=== PATIENT | female | born 1980 | race Caucasian/White ===

== ENCOUNTER 2019-02-05 15:06 | Emergency (ER) | payer OTHER ==
[2019-02-05 15:18] VITALS: BP 117/86; PULSE 65; O2SAT 99
[2019-02-05] MEDS ORDERED: solu-CORTEF 250MG IM STA (15:19)
--- NOTE | 2019-02-05 15:23 | ERPHSYRPT ---
- History of Present Illness Time Seen by Provider: 02/05/19 15:19 Source: patient Exam Limitations: no limitations Patient Subjective Stated Complaint: was stung by a bee by the right eye and 2 days later the left eye was swollen, went to [facility] on Thursday and was given eye drops, pain and swelling has gotten worse, light sensitive Triage Nursing Assessment: vitals wnl, pulses normal, left eye swollen, rates pain 6/10 Physician History: was stung by a bee by the right eye and 2 days later the left eye was swollen, went to [facility] on Thursday and was given eye drops, pain and swelling has gotten worse, light sensitive Timing/Duration: day(s) (5 days ago) Location: left eye Severity: moderate Apparent Injury: no Associated Symptoms: pain, burning, itching, sensitivity to light, redness, matting, eyelid swelling, foreign body sensation, No decreased vision, No blurred vision, No double vision Visual Assistive Devices: None Allergies/Adverse Reactions: No Known Drug Allergies Allergy (Verified 02/05/19 15:18) Home Medications: Ropinirole 2Mg [Requip 2Mg Tab] 2 mg PO BID 10/29/14 [History] Hx Tetanus, Diphtheria Vaccination/Date Given: Yes (2009) Hx Influenza Vaccination/Date Given: No Hx Pneumococcal Vaccination/Date Given: No - Review of Systems Constitutional: No Symptoms Eyes: Eye Pain, Eye Redness, Itchy, Tearing, Foreign Body Sensation, No Photophobia, No Vision Changes, No Double Vision Ears, Nose, & Throat: No Symptoms Respiratory: No Symptoms Cardiac: No Symptoms Abdominal/Gastrointestinal: No Symptoms Genitourinary Symptoms: No Symptoms Musculoskeletal: No Symptoms - Past Medical History Pertinent Past Medical History: Yes Neurological History: No Pertinent History ENT History: No Pertinent History Cardiac History: No Pertinent History Respiratory History: No Pertinent History Endocrine Medical History: No Pertinent History Musculoskeletal History: Osteoarthritis GI Medical History: No Pertinent History History: No Pertinent History Psycho-Social History: No Pertinent History Female Reproductive Disorders: No Pertinent History Other Medical History: BACK PAIN - Past Surgical History Past Surgical History: No - Social History Smoking Status: Current every day smoker How long have you smoked: 10 Exposure to second hand smoke: Yes Drug Use: none Patient Lives Alone: No - Female History Hx Now: No (unsure) - Nursing Vital Signs Nursing Vital Signs: Initial Vital Signs Temperature 97.3 F 02/05/19 15:10 Pulse Rate 65 02/05/19 15:10 Blood Pressure 117/86 02/05/19 15:10 O2 Sat by Pulse Oximetry 99 02/05/19 15:10 Pain Scale Pain Intensity 6 - Physical Exam General Appearance: no apparent distress Vision Acuity Right Eye: 20/20 Vision Acuity Left Eye: 20/20 Eye Exam: left eye: eyelid inflammation, bilateral eye: conjunctival inflammation, erythema Ears, Nose, Throat Exam: normal ENT inspection Neck Exam: normal inspection Respiratory Exam: normal breath sounds Cardiovascular Exam: regular rate/rhythm SpO2: 99 - Course Nursing assessment & vital signs reviewed: Yes Ordered Tests: Medication Summary Discontinued Medications Generic Name Dose Route Start Last Admin Trade Name Freq PRN Reason Stop Dose Admin Hydrocortisone Sodium Succinate 250 mg 02/05/19 15:19 02/05/19 15:37 Solu-Cortef 250mg IM 02/05/19 15:20 250 mg Q6H STA Administration Hydrocortisone Sodium Succinate Confirm 02/05/19 15:32 Solu-Cortef 250mg Administered 02/05/19 15:33 Dose 250 mg .ROUTE .STK-MED ONE - Progress Progress: unchanged, pain not gone completely Counseled pt/family regarding: diagnosis, need for follow-up - Departure Departure Disposition: Home Clinical Impression: Allergic reaction to bee sting, Angular blepharitis of left eye Condition: Stable Critical Care Time: No Referrals: KENDRA GODINEZ [Primary Care Provider] - Instructions: Blepharitis, Insect Bites and Stings (DC) Additional Instructions: Discharge/Care Plan MARILIA KAN was seen on 02/05/19 in the Emergency Room. The patient was counseled regarding Diagnosis,Lab results, Imaging studies, need for follow up and when to return to the Emergency Room. Prescriptions given: Discharge Note I have spoken with the patient and/or caregivers. I have explained the patient' s condition, diagnosis and treatment plan based on the information available to me at this time. I have answered the patient's and/or caregiver's questions and addressed any concerns. The patient and/or caregivers have as good understanding of the patient's diagnosis, condition and treatment plan as can be expected at this point. The vital signs have been stable. The patient's condition is stable and appropriate for discharge from the emergency department. The patient will pursue further outpatient evaluation with the primary care physician or other designated or consulting physician as outlined in the discharge instructions. The patient and/or caregivers are agreeable to this plan of care and follow-up instructions have been explained in detail. The patient and/or caregivers have received these instruction. The patient/and or caregivers are aware that any significant change in condition or worsening of symptoms should prompt an immediate return to this or the closest emergency department or call 911. Prescriptions: Silvano/Polymyx B Sulf/Dexameth [Maxitrol 5 ml Ophth Susp] 2 drops OP QID #5 bottle Methylprednisolone Packet [Medrol Dosepack] 4 mg PO UD #30 packet
[2019-02-05] MEDS ORDERED: solu-CORTEF 250MG ONE (15:32)
== END 2019-02-05 15:44 | disposition home or self-care (01) ==
LOC: ED 15:06
DX: H01.006 Unspecified blepharitis left eye, unspecified eyelid (principal); T63.441A Toxic effect of venom of bees, accidental (unintentional), initial encounter
CPT/HCPCS: 96372; 99283; J1720

== ENCOUNTER 2021-01-07 08:45 | Emergency (ER) | payer OTHER ==
--- NOTE | 2021-01-07 08:49 | ERPHSYRPT ---
- History of Present Illness Time Seen by Provider: 01/07/21 08:49 Source: patient Exam Limitations: no limitations Physician History: This is a 40-year-old white female who presents with approximately 2-day history of left neck pain in the posterior lateral region. Patient did not suffer any trauma or injury. She woke up a couple days ago and now she cannot get comfortable. Is difficult for her to move her neck because of the pain in this area. The patient states she is never had a thing like this before. She has no chest pain. She has no shortness of breath. She has no abdominal pain. She has no nausea vomiting or diarrhea. Patient has no known drug allergies per her report. Patient has no numbness or paresthesias present. 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 Timing/Duration: day(s) (2) Method of Injury: other (No injury) Quality: sharp, aching Back Pain Location: paraspinous muscles (Cervical region on the left side) Severity of Pain-Max: moderate Severity of Pain-Current: moderate Associated Symptoms: denies symptoms Previous symptoms: no prior history Allergies/Adverse Reactions: No Known Drug Allergies Allergy (Verified 02/05/19 15:18) Home Medications: Ropinirole 2Mg [Requip 2Mg Tab] 2 mg PO BID 10/29/14 [History] Hx Tetanus, Diphtheria Vaccination/Date Given: Yes (2009) Hx Influenza Vaccination/Date Given: No Hx Pneumococcal Vaccination/Date Given: No Travel Risk - International Travel Have you traveled outside of the country in past 3 weeks: No - Coronavirus Screening Are you exhibiting any of the following symptoms?: No Close contact with a COVID-19 positive Pt in past 14-21 Days: No - Review of Systems Constitutional: No Symptoms Eyes: No Symptoms Ears, Nose, & Throat: No Symptoms Respiratory: No Symptoms Cardiac: No Symptoms Abdominal/Gastrointestinal: No Symptoms Genitourinary Symptoms: No Symptoms Musculoskeletal: Other (Left paraspinous muscle and trapezius muscle on the left side pain. Worse with movement) Skin: No Symptoms Neurological: No Symptoms Psychological: No Symptoms Endocrine: No Symptoms Hematologic/Lymphatic: No Symptoms Immunological/Allergic: No Symptoms All Other Systems: Reviewed and Negative - Past Medical History Pertinent Past Medical History: Yes Neurological History: No Pertinent History ENT History: No Pertinent History Cardiac History: No Pertinent History Respiratory History: No Pertinent History Endocrine Medical History: No Pertinent History Musculoskeletal History: Osteoarthritis GI Medical History: No Pertinent History History: No Pertinent History Psycho-Social History: No Pertinent History Female Reproductive Disorders: No Pertinent History Other Medical History: BACK PAIN - Past Surgical History Past Surgical History: No - Social History Smoking Status: Current every day smoker How long have you smoked: 10 Exposure to second hand smoke: Yes Drug Use: none Patient Lives Alone: No - Nursing Vital Signs Nursing Vital Signs: Initial Vital Signs Temperature 97.6 F 01/07/21 08:51 Pulse Rate 82 01/07/21 08:51 Respiratory Rate 22 01/07/21 08:51 Blood Pressure 123/66 01/07/21 08:51 O2 Sat by Pulse Oximetry 98 01/07/21 08:51 Pain Scale Pain Intensity 5 - Physical Exam General Appearance: no apparent distress, alert, anxiety Eye Exam: PERRL/EOMI, eyes nml inspection Ears, Nose, Throat Exam: normal ENT inspection, TMs normal, pharynx normal Neck Exam: limited range of motion (Secondary to tenderness in the left paraspinous muscle region as well as tenderness to palpation to the left trapezius muscle.), No midline tenderness Cardiovascular Exam: regular rate/rhythm, normal heart sounds, normal peripheral pulses Gastrointestinal Exam: No tenderness Pelvic Exam: not done Rectal Exam: not done Back Exam: normal inspection, normal range of motion, muscle spasm (Left cervical level paraspinous muscles), No CVA tenderness, No vertebral tenderness Extremity Exam: normal inspection, normal range of motion, pelvis stable Neurologic Exam: alert, oriented x 3, cooperative, 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, normal mood/affect, nml station & gait Skin Exam: normal color Lymphatic Exam: No adenopathy SpO2 Interpretation: normal O2 Delivery: Room Air - Course Nursing assessment & vital signs reviewed: Yes Ordered Tests: Medication Summary Discontinued Medications Generic Name Dose Route Start Last Admin Trade Name Freq PRN Reason Stop Dose Admin Methylprednisolone Sodium Succinate 125 mg 01/07/21 09:05 Solu-Medrol 125 Mg IM 01/07/21 09:06 STAT ONE Orphenadrine Citrate 60 mg 01/07/21 09:05 Norflex 60 Mg/2 Ml IM 01/07/21 09:06 STAT ONE Oxycodone/Acetaminophen 1 tab 01/07/21 09:04 Percocet Tablet 5/325mg PO 01/07/21 09:05 STAT STA - Progress Progress: improved, pain not gone completely Counseled pt/family regarding: diagnosis, need for follow-up - Departure Departure Disposition: Home Clinical Impression: Cervical muscle strain, Muscle spasms of neck Condition: Stable Critical Care Time: No Referrals: KENDRA GODINEZ [Primary Care Provider] - Additional Instructions: Take your medication as prescribed. Follow-up with your primary care physician for further management. Prescriptions: Cyclobenzaprine HCl 10 mg [Cyclobenzaprine 10 MG] 10 mg PO TID #10 tablet Prednisone 10 mg [Deltasone 10 mg] 10 mg PO TID #12 tablet
[2021-01-07 08:57] VITALS: O2SAT 98
[2021-01-07] MEDS ORDERED: PERCOCET TABLET 5/325MG PO STA (09:04)
[2021-01-07] MEDS ORDERED: solu-MEDROL 125 MG IM ONE (09:05)
[2021-01-07] MEDS ORDERED: Norflex 60 MG/2 ML IM ONE (09:05)
[2021-01-07] MEDS ORDERED: Norflex 60 MG/2 ML ONE (09:07)
[2021-01-07] MEDS ORDERED: solu-MEDROL 125 MG ONE (09:07)
[2021-01-07] MEDS ORDERED: PERCOCET TABLET 5/325MG ONE (09:07)
[2021-01-07 09:44] VITALS: BP 118/20; PULSE 68
== END 2021-01-07 09:43 | disposition home or self-care (01) ==
LOC: ED 08:45
DX: S16.1XXA Strain of muscle, fascia and tendon at neck level, initial encounter (principal); X58.XXXA Exposure to other specified factors, initial encounter; Y93.9 Activity, unspecified; Y92.9 Unspecified place or not applicable; M54.2 Cervicalgia
CPT/HCPCS: 96372; 99284; J2360; J2930; A9270-GY

== ENCOUNTER 2021-10-16 09:55 | Observation (INO) | payer OTHER ==
[2021-10-16 10:52] VITALS: BP 119/57; PULSE 79; O2SAT 98
[2021-10-16 10:57] LABS: Amphetamine,Urine NEGATIVE (NEGATIVE); Barbiturate,Urine NEGATIVE (NEGATIVE); Benzodiazepine,Urine NEGATIVE (NEGATIVE); Cocaine,Urine NEGATIVE (NEGATIVE); Methadone,Urine NEGATIVE (NEGATIVE); Opiate,Urine NEGATIVE (NEGATIVE); PCP,Urine NEGATIVE (NEGATIVE); THC,Urine NEGATIVE (NEGATIVE)
[2021-10-16 11:16] LABS: Epithelial Cells MODERATE /HPF (FEW); Mucus SLIGHT /HPF (NEGATIVE); RBC 0-2 /HPF (0-2)
[2021-10-16 11:17] LABS: Appearance SLIGHTLY HAZY (CLEAR); Bilirubin NEGATIVE (NEGATIVE); Glucose 250 mg/dL (NEGATIVE); Ketones NEGATIVE (NEGATIVE); Nitrite NEGATIVE (NEGATIVE); Ph 5.5 (5-6); Protein,Urine Dip NEGATIVE (Negative); RBC NEGATIVE Ery/ul (0-5); Specific Gravity >=1.030 (1.005-1.025); Urine Cultured Indicated? NO; Urobilinogen 4 mg/dL (0-1)
[2021-10-16 11:45] LABS: Dipstick done @ ? MAIN LAB
== END 2021-10-16 11:55 | disposition home or self-care (01) ==
LOC: OB 09:55
PROVIDERS: ADMIT Obstetrics & Gynecology; ATTEND Obstetrics & Gynecology
DX: Z34.83 Encounter for supervision of other normal pregnancy, third trimester (principal); Z3A.29 29 weeks gestation of pregnancy
CPT/HCPCS: 80307; 81015; G0378

== ENCOUNTER 2021-11-25 17:29 | Observation (INO) | payer OTHER ==
[2021-11-25 18:11] LABS: Appearance SLIGHTLY CLOUDY (CLEAR); Bilirubin NEGATIVE (NEGATIVE); Dipstick done @ ? MAIN LAB; Glucose 100 mg/dL (NEGATIVE); Ketones NEGATIVE (NEGATIVE); Nitrite NEGATIVE (NEGATIVE); Protein,Urine Dip 30 (Negative); RBC NEGATIVE Ery/ul (0-5); Specific Gravity >=1.030 (1.005-1.025); Urobilinogen 4 mg/dL (0-1)
[2021-11-25 18:16] LABS: Epithelial Cells MANY /HPF (FEW); Mucus SLIGHT /HPF (NEGATIVE)
[2021-11-25 18:17] LABS: Urine Cultured Indicated? NO
[2021-11-25 18:28] LABS: Amphetamine,Urine NEGATIVE (NEGATIVE); Barbiturate,Urine NEGATIVE (NEGATIVE); Benzodiazepine,Urine NEGATIVE (NEGATIVE); Cocaine,Urine NEGATIVE (NEGATIVE); Methadone,Urine NEGATIVE (NEGATIVE); Opiate,Urine NEGATIVE (NEGATIVE); PCP,Urine NEGATIVE (NEGATIVE); THC,Urine NEGATIVE (NEGATIVE)
[2021-11-25 18:53] LABS: Absolute Neutrophil Ct (ANC) 8.59 (1.4-6.9); Basophil (Absolute #) 0.02 (0-0.4); Eosinophil % 0.8 % (0.00-5.0); Hematocrit 36.5 % (35-47); Hemoglobin 12.4 gm/dl (12.0-16.0); Lymphocyte (Absolute #) 2.85 (1.0-4.6); Lymphocytes % 23.2 % (24.0-44.0); Mean Cell Volume 94.6 fl (78-100); Mean Corpuscular Hemoglobin 32.1 pg (26-32); Mean Platelet Volume 9.8 fl (7.5-11.0); Monocyte (Absolute #) 0.74 (0.0-1.3); Neutrophil % 69.8 % (36.0-66.0); Platelet Count 279 K/mm3 (150-450); Red Blood Count 3.86 M/mm3 (4.1-5.4); White Blood Count 12.3 K/mm3 (4.0-10.5)
[2021-11-25 19:10] LABS: ALBUMIN 3.2 g/dL (3.5-5.0); ALKALINE PHOSPHATASE 112 U/L (38-126); ANION GAP 9.4 MEQ/L (5-15); BLOOD UREA NITROGEN 10 mg/dL (7-17); CHLORIDE 108 mmol/L (98-107); Carbon Dioxide 21 mmol/L (22-30); EST GLOMERULAR FILTRATION RATE > 60.0 ML/MIN; Glucose 114 mg/dL (74-106); Potassium 3.6 mmol/L (3.5-5.1); SGOT/AST 20 U/L (14-36); SGPT/ALT 16 U/L (0-35); SODIUM 135 mmol/L (137-145); Total Protein 6.4 g/dL (6.3-8.2)
[2021-11-25 19:44] VITALS: BP 130/79; PULSE 74
[2021-11-25 19:59] LABS: Creatinine, Urine Random 131.5 mg/dl; Protein Creatinine Ratio, Ran. 0.32 mg/mg (0.0-0.15)
== END 2021-11-25 20:20 | disposition home or self-care (01) ==
LOC: OB 17:29
PROVIDERS: ADMIT Obstetrics & Gynecology; ATTEND Obstetrics & Gynecology
DX: Z34.83 Encounter for supervision of other normal pregnancy, third trimester (principal); Z3A.35 35 weeks gestation of pregnancy
CPT/HCPCS: 36415; 80053; 80307; 81015; 82570; 84156; 84550; 85025; G0378

== ENCOUNTER 2021-12-13 08:53 | Inpatient (IN) | payer OTHER ==
[2021-12-13] MEDS ORDERED: CYTOTEC PO ONE (10:52)
[2021-12-13 11:27] LABS: Hematocrit 38.6 % (35-47); Hemoglobin 13.2 g/dL (12.0-16.0); Mean Corpuscular Hemoglobin 31.8 pg (26-32); Mean Corpuscular Hgb Concent. 34.2 g/dL (32-36); Mean Platelet Volume 9.5 fL (7.5-11.0); Platelet Count 273 x10^3/uL (150-450); Red Blood Count 4.15 x10^6/uL (4.1-5.4)
[2021-12-13 11:40] LABS: ALBUMIN 3.3 g/dL (3.5-5.0); ALKALINE PHOSPHATASE 145 U/L (38-126); ANION GAP 9.4 MEQ/L (5-15); BLOOD UREA NITROGEN 10 mg/dL (7-17); CHLORIDE 108 mmol/L (98-107); Calcium 8.9 mg/dL (8.4-10.2); Carbon Dioxide 20 mmol/L (22-30); Creatinine 1 0.65 mg/dL (0.52-1.04); EST GLOMERULAR FILTRATION RATE > 60.0 ML/MIN; Glucose 95 mg/dL (74-106); Potassium 3.8 mmol/L (3.5-5.1); SGOT/AST 25 U/L (14-36); SGPT/ALT 18 U/L (0-35); SODIUM 133 mmol/L (137-145); Total Protein 6.6 g/dL (6.3-8.2)
[2021-12-13] MEDS ORDERED: Zofran 4 MG/2 ML VIAL IV PRN (12:57)
[2021-12-13] MEDS ORDERED: XYLOCAINE 1% HCL 20 ML MDV IJ PRN (12:57)
[2021-12-13 14:19] LABS: ABO TYPING AB; Antibody Screen NEGATIVE (NEGATIVE); RH TYPING POSITIVE
[2021-12-13] MEDS: REQUIP 2MG TAB PO SCH ×2 (16:04→22:54)
[2021-12-13 16:23] LABS: Amphetamine,Urine NEGATIVE (NEGATIVE); Barbiturate,Urine NEGATIVE (NEGATIVE); Benzodiazepine,Urine NEGATIVE (NEGATIVE); Cocaine,Urine NEGATIVE (NEGATIVE); Methadone,Urine NEGATIVE (NEGATIVE); Opiate,Urine NEGATIVE (NEGATIVE); PCP,Urine NEGATIVE (NEGATIVE); THC,Urine NEGATIVE (NEGATIVE)
[2021-12-13] MEDS ORDERED: Lactated Ringers 1,000 ML IV ONE (18:21)
[2021-12-13] MEDS ORDERED: Ephedrine Sulfate 50 MG/ML IV PRN (18:21)
[2021-12-13] MEDS ORDERED: FENTANYL 2 MCG-BUPIV 0.125%-NS 250 ML Epidur 250 ML EPIDURAL SCH (18:30)
[2021-12-13] MEDS ORDERED: STADOL 2 MG IV PRN (22:21)
[2021-12-14] MEDS: TYLENOL EXTRA STRENGTH 500 MG PO PRN ×2 (03:56→11:06)
[2021-12-14] MEDS: STADOL 2 MG IV PRN ×2 (05:29→22:03)
[2021-12-14 10:24] LABS: HBsAg Screen Negative (Negative)
[2021-12-14] MEDS: REQUIP 2MG TAB PO SCH ×3 (10:30→22:07)
[2021-12-14] MEDS: CYTOTEC PO SCH ×5 (15:36→23:30)
[2021-12-14] MEDS: Lactated Ringers 1,000 ML IV SCH ×3 (22:09→22:11)
[2021-12-14] MEDS: PITOCIN 30 UNITS/ LR 500 ML 30 UNITS/500 ML PLAST..BAG IV SCH (22:11)
[2021-12-15] MEDS: CYTOTEC PO SCH ×3 (01:35→06:56)
[2021-12-15] MEDS: Lactated Ringers 1,000 ML IV SCH ×2 (05:02→23:13)
[2021-12-15] MEDS ORDERED: PITOCIN 30 UNITS/ LR 500 ML 30 UNITS/500 ML PLAST..BAG IV SCH (06:30)
[2021-12-15] MEDS ORDERED: Pepcid 20 MG VIAL IV ONE (08:58)
[2021-12-15] MEDS ORDERED: SUBLIMAZE 100 MCG/2 ML ONE (08:58)
[2021-12-15] MEDS ORDERED: XYLOCAINE 2%/Epi 1:200000 20ML VIAL MPF ONE (08:58)
[2021-12-15] MEDS ORDERED: Zofran 4 MG/2 ML VIAL IV ONE (08:58)
[2021-12-15] MEDS ORDERED: KEFZOL 1 GM ONE (09:08)
[2021-12-15] MEDS ORDERED: Pitocin 10 UNITS/ML ONE (09:19)
[2021-12-15] MEDS ORDERED: Ephedrine Sulfate 50 MG/ML ONE (09:21)
[2021-12-15] MEDS ORDERED: Astramorph-Pf 5 MG/10 ML ONE (09:26)
[2021-12-15] MEDS ORDERED: Decadron 4 MG INJ ONE (09:32)
[2021-12-15] MEDS ORDERED: Marcaine 0.5%/Epinephrine 10 ML ONE (09:32)
[2021-12-15] MEDS ORDERED: DEXMEDETOMIDINE 80 MCG/20ML-NS IV ONE (09:36)
[2021-12-15] MEDS ORDERED: Lactated Ringers 1,000 ML IV ONE (10:36)
[2021-12-15] MEDS ORDERED: Nubain 10 MG/ML IV PRN (12:30)
[2021-12-15] MEDS ORDERED: Narcan 0.4 MG/ML IV PRN (12:30)
[2021-12-15] MEDS ORDERED: BENADRYL 50 MG/ML IV PRN (12:30)
[2021-12-15] MEDS ORDERED: HOLD NARCOTIC ANALGESICS AND SEDATIVES X24 HR MC PRN (12:30)
[2021-12-15] MEDS ORDERED: DEMEROL 50 MG IV PRN (12:30)
[2021-12-15] MEDS ORDERED: CLARITIN 10 MG PO PRN (12:30)
[2021-12-15] MEDS ORDERED: MORPHINE SULFATE 2 MG INJ IV PRN (12:30)
[2021-12-15] MEDS ORDERED: PERCOCET TABLET 5/325MG PO PRN (12:30)
[2021-12-15 12:35] LABS: Epithelial Cells RARE /HPF (FEW); Mucus SLIGHT /HPF (NEGATIVE); RBC 26-50 /HPF (0-2)
[2021-12-15 12:37] LABS: Appearance CLEAR (CLEAR); Bilirubin NEGATIVE (NEGATIVE); Glucose NEGATIVE (NEGATIVE); Ketones NEGATIVE (NEGATIVE)
[2021-12-15 12:38] LABS: Nitrite NEGATIVE (NEGATIVE); Ph 5.5 (5-6); Protein,Urine Dip 100 (Negative); RBC MODERATE Ery/ul (0-5); Urobilinogen 1 mg/dL (0-1)
[2021-12-15 12:59] LABS: Dipstick done @ ? MAIN LAB
[2021-12-15] MEDS: Dextrose 5%-Lr IV Solution 1000 ML 1,000 ML IV SCH ×3 (15:01→23:43)
[2021-12-15] MEDS: CEFAZOLIN 2 GM-D5W BAG** 2 GM/50 ML ML IV SCH ×2 (15:41→21:52)
[2021-12-15] MEDS: REQUIP 2MG TAB PO SCH ×2 (16:27→21:55)
[2021-12-15] MEDS: TORAdol 30 mg Injection IV PRN ×2 (17:58→23:44)
--- NOTE | 2021-12-15 19:50 | XRAY ---
Indication: Post . Foreign body Comparison: None KUB light in technique without radiopaque foreign body or focal bowel dilatation/obstruction. Enlarged uterus consistent with recent . Osseous structures intact. Comment: Preliminary interpretation made by [facility]. No critical discrepancy.
[2021-12-15] MEDS: PITOCIN 30 UNITS/ LR 500 ML 30 UNITS/500 ML PLAST..BAG IV SCH (23:12)
[2021-12-16 05:07] LABS: Absolute Neutrophil Ct (ANC) 12.82 x10^3/uL (1.4-6.9); Basophil (Absolute #) 0.02 x10^3/uL (0-0.4); Eosinophil (Absolute #) 0 x10^3/uL (0-0.5); Hematocrit 34.7 % (35-47); Hemoglobin 11.6 g/dL (12.0-16.0); Lymphocyte (Absolute #) 2.74 x10^3/uL (1.0-4.6); Lymphocytes % 16.5 % (24.0-44.0); Mean Cell Volume 95.1 fL (78-100); Mean Corpuscular Hemoglobin 31.8 pg (26-32); Mean Corpuscular Hgb Concent. 33.4 g/dL (32-36); Mean Platelet Volume 9.7 fL (7.5-11.0); Monocyte (Absolute #) 0.89 x10^3/uL (0.0-1.3); Monocytes % 5.4 % (0.0-12.0); Neutrophil % 77.4 % (36.0-66.0); Platelet Count 283 x10^3/uL (150-450); Red Blood Count 3.65 x10^6/uL (4.1-5.4); Red Cell Distribution Width 12.2 % (11.5-14.0); White Blood Count 16.6 x10^3/uL (4.0-10.5)
[2021-12-16] MEDS: TORAdol 30 mg Injection IV PRN (05:43)
[2021-12-16 08:27] VITALS: O2SAT 97
--- NOTE | 2021-12-16 09:16 | PCM.NOTE ---
Date and Time: 12/16/21911 Subjective Assessment: pod 1 sp csection pt resting in bed and doing well able to ambulate and tolerate diet vss afebrile abd; soft incision with dressing intact with no soilage uterus; firm lochia; mild a/p sp csection pod 1 will anticipate discharge tomorrow cpm OBJECTIVE DATA Vital Signs: Vital Signs - 24 hr Temp Pulse Resp BP Pulse Ox 12/16/21 08:30 98.5 F 74 18 144/61 12/16/21 08:00 97 12/16/21 07:00 99 12/16/21 06:00 96 12/16/21 05:00 98.7 F 72 20 125/60 96 12/16/21 04:00 95 12/16/21 03:00 95 12/16/21 02:00 95 12/16/21 01:00 69 20 99 12/16/21 00:00 98.2 F 78 20 125/96 97 12/15/21 23:00 96 12/15/21 22:00 96 12/15/21 20:00 98.8 F 78 20 142/65 98 12/15/21 19:00 100 12/15/21 18:00 100 12/15/21 17:00 100 12/15/21 14:30 98.5 F 75 18 127/61 96 12/15/21 14:00 98.5 F 77 18 111/58 97 12/15/21 13:30 98.5 F 77 18 111/58 97 12/15/21 13:00 98.1 F 75 16 102/54 96 12/15/21 12:30 98.1 F 72 16 97/50 93 L 12/15/21 12:15 98.1 F 69 16 91/55 96 12/15/21 12:00 98.1 F 73 16 95/51 96 12/15/21 11:45 98.1 F 74 16 105/53 95 Pain Assessment - Last Documented Pain Intensity [Anterior] 5 Pain Intensity 0 Pain Scale Used 0-10 Pain Scale Intake and Output: Intake & Output 12/13/21 12/14/21 12/15/21 12/16/21 11:59 11:59 11:59 11:59 Intake Total 200 7270 120 4304 Output Total 600 1150 Balance -400 5181 841 7622 Weight 250 kg 113.398 kg Lab Results: Lab Results-Last 24 Hours 12/13/21 12/15/21 12/16/21 Range/Units 11:24 10:07 04:55 WBC 16.6 H (4.0-10.5) x10^3/uL RBC 3.65 L (4.1-5.4) x10^6/uL Hgb 11.6 L (12.0-16.0) g/dL Hct 34.7 L (35-47) % MCV 95.1 (78-100) fL MCH 31.8 (26-32) pg MCHC 33.4 (32-36) g/dL RDW 12.2 (11.5-14.0) % Plt Count 283 (150-450) x10^3/uL MPV 9.7 (7.5-11.0) fL Gran % 77.4 H (36.0-66.0) % Immature Gran % (Auto) 0.6 H (0.00-0.4) % Nucleat RBC Rel Count 0.0 (0.00-0.1) % Eos # (Auto) 0 (0-0.5) x10^3/uL Immature Gran # (Auto) 0.10 H (0.00-0.03) x10^3u/L Absolute Lymphs (auto) 2.74 (1.0-4.6) x10^3/uL Absolute Monos (auto) 0.89 (0.0-1.3) x10^3/uL Absolute Nucleated RBC 0.00 (0.00-0.01) x10^3u/L Lymphocytes % 16.5 L (24.0-44.0) % Monocytes % 5.4 (0.0-12.0) % Eosinophils % 0.0 (0.00-5.0) % Basophils % 0.1 (0.0-0.4) % Absolute Granulocytes 12.82 H (1.4-6.9) x10^3/uL Basophils # 0.02 (0-0.4) x10^3/uL Bile Acids 4.0 (0.0-10.0) umol/L Urinalys Dipstick Clnc MAIN LAB Urine Color YELLOW (YELLOW) Urine Appearance CLEAR (CLEAR) Urine pH 5.5 (5-6) Ur Specific [place] 1.020 (1.005-1.025) POC Urine Protein Conf 100 (Negative) Urine Ketones NEGATIVE (NEGATIVE) Urine Nitrite NEGATIVE (NEGATIVE) Urine Bilirubin NEGATIVE (NEGATIVE) Urine Urobilinogen 1 (0-1) mg/dL Urine Leukocytes NEGATIVE (NEGATIVE) Urine WBC (Auto) 3-5 (0-5) /HPF Urine RBC (Auto) 26-50 (0-2) /HPF U Epithel Cells (Auto) RARE (FEW) /HPF Urine Bacteria (Auto) NONE (NEGATIVE) /HPF Urine RBC MODERATE (0-5) Cristiano/ul Other Casts (Auto) NEGATIVE (NEGATIVE) /LPF Urine Mucus (Auto) SLIGHT (NEGATIVE) /HPF Urine Glucose NEGATIVE (NEGATIVE) mg/dL Radiology Exams: Radiology Procedures Category Date Time Status KUB Routine Exams 12/15/21 11:19 Completed Multi-Disciplinary Progress Notes: Multi-Disciplinary Progress Notes 12/15/21 15:59 Respiratory Note by Khushbu Kingsley FOR EMERGENT DUE TO DECELLS. 0924 BABY TO WARMER CRYING, COLOR CYNOTIC DR GONZALEZ PRESENT. SX FOR SCANT WHITE.COLOR CONTINUES TO BE CYNOTIC BABY GIVEN PPV FOR APPROX 3 MIN . COLOR IMPROVED, WITH NASAL FLARING AND GRUNTING CPAP AND PPV APPLIED VIA LUCIAN-T, ALL O2 IS 100%.BABY TAKEN BACK TO NURSERY NASAL FLARING AND GRUNTING CONTINUE. PLACED ON HHHF . 1000- 3.5L- 25% -SP02 83-88%. 1030- 7L -28%- SPO2 78-82%. 1045- 6L 25% SPO2 88-92%. 1200- 4.5L 21% 98%. 1230- 4.5L 28% SPO2 80'S. 1300- 4.5L 21% SPO2- 90'S. 1400L- 21% SPO2 92%. OVER PAST COUPLE OF HOURS NASAL FLAIRING AND GRUNTING HAVE STOPPED BABY RESTING WITH NO DISTRESS, WILL LEAVE HHF AT 4.5 AND FIO2 21%. WILL WEAN TOLERATED Initialized on 12/15/21 15:59 - END OF NOTE Assessment/Plan (1) Cholestasis during Current Visit: Yes Status: Acute Code(s): O26.619 - LIVER AND BILIARY TRACT DISORD IN , UNSP TRIMESTER; K83.1 - OBSTRUCTION OF BILE DUCT (2) Non-reassuring electronic monitoring tracing Current Visit: Yes Status: Acute Code(s): O36.8390 - MATERN CARE FOR ABNLT FETL HRT RATE OR RHYM, UNSP TRI, UNSP (3) S/P primary low transverse Current Visit: Yes Status: Acute Code(s): Z98.891 - HISTORY OF UTERINE SCAR FROM PREVIOUS SURGERY
[2021-12-16] MEDS ORDERED: ENOXAPARIN SODIUM SQ ONE (10:00)
[2021-12-16] MEDS: REQUIP 2MG TAB PO SCH ×2 (10:40→22:12)
[2021-12-16] MEDS: FERREX 150 PO SCH (10:43)
[2021-12-16] MEDS: Docusate Sodium 100 MG PO SCH ×2 (10:43→22:12)
--- NOTE | 2021-12-16 11:52 | OP ---
SURGERY DATE/TIME: 12/15/2021901 PREOPERATIVE DIAGNOSIS: Intrauterine at 38 weeks and 2 days with prolonged bradycardia with suspected cholestasis of and hepatitis C. POSTOPERATIVE DIAGNOSIS: Intrauterine at 38 weeks and 2 days with prolonged bradycardia with suspected cholestasis of and hepatitis C. PROCEDURE: Primary section, low flap transverse uterine incision, Pfannenstiel skin incision. SURGEON: Tay Wang D.O. CONSUMER INSIGHTS INTERN: Blanche James M.D. ANESTHESIA: Epidural. ESTIMATED BLOOD LOSS: 400 cc. COMPLICATIONS: None. INDICATIONS: The risks, benefits, indications and alternatives of the procedure were reviewed with the patient prior to procedure. The patient understood the risk of infection, bleeding, bowel injury, bladder injury, ureteral injury, uterine perforation, pelvic infection and thromboembolic disorder associated with the surgery and desires to have this surgery as a possible means to alleviate her current medical condition. DESCRIPTION OF PROCEDURE AND FINDINGS: At this point the patient is taken to the operating room in a STAT situation where an epidural anesthesia had been placed prior to the procedure which was found to be adequate. She was then prepared and draped in normal sterile fashion in the dorsal supine position with a leftward tilt. A Pfannenstiel skin incision is made with a scalpel and carried through to the underlying layer of the fascia with Bovie. The fascia was then incised in the midline and the incision extended laterally with Garcia scissors. The superior aspect of the fascial incision was then grasped Crista clamps elevated and the underlying rectus muscles dissected off bluntly. Attention is then turned to the inferior aspect of this incision which in similar fashion was grasped, tented up with Crista clamps and the rectus muscles dissected off bluntly. The rectus muscles were then in the midline and the peritoneum identified, tented up and entered sharply with Metzenbaum scissors. The peritoneal incision was then extended superiorly and inferiorly with good visualization of the bladder. The bladder blade was then inserted and the vesicouterine peritoneum identified, grasped with pickups and entered sharply with Metzenbaum scissors. This incision was then extended laterally and bladder flap created digitally. The bladder blade was then reinserted and the lower uterine segment incised in transverse fashion with a scalpel. The uterine incision was then extended laterally with bandage scissors. The bladder blade was then removed. The 's head was delivered atraumatically. The nose and mouth were suctioned with bulb suction and the cord clamped and cut. The infant was then handed off to awaiting nurses. The placenta was then removed manually. The uterus exteriorized and cleared of all clots and debris. The uterine incision was repaired with 1-0 chromic in a running locked fashion. A second layer of the same suture was used to obtain excellent hemostasis. At this point the uterus is then returned to the abdomen. The gutters were cleared of clots and the peritoneal muscles were closed with 2-0 chromic suture. The fascia was re-approximated with 0 Vicryl in a running fashion. The subcutaneous layer was closed with 3-0 Vicryl suture and the skin was closed with absorbable lake called INSORB. The patient tolerated the procedure well. Sponge, lap, needle and instrument counts were correct x2. The patient was then taken to the recovery room in stable condition. The patient delivered a live baby boy at 0926 hours, weight of the baby was 7 pounds 1 ounce and 's were 6 at 1 minute and 9 at 5 minutes.
[2021-12-16] MEDS: TYLENOL EXTRA STRENGTH 500 MG PO PRN (17:46)
[2021-12-16] MEDS ORDERED: NORCO 5/325 MG PO PRN (18:52)
[2021-12-16] MEDS: MOTRIN 400 MG PO PRN (18:59)
[2021-12-17] MEDS: TYLENOL EXTRA STRENGTH 500 MG PO PRN (00:09)
[2021-12-17] MEDS: MOTRIN 400 MG PO PRN ×2 (02:27→09:37)
--- NOTE | 2021-12-17 07:58 | PCM.NOTE ---
Date and Time: 12/17/21 0757 Subjective Assessment: pod 2 pt resting in bed and doing well. able to ambulate and tolerate diet vss afebrile abd; soft incision c/d/intact uterus; firm lochia; mild a/p sp csection pod 2 dc home today fu office 2 wks OBJECTIVE DATA Vital Signs: Vital Signs - 24 hr Temp Pulse Resp BP Pulse Ox 12/17/21 02:00 98.5 F 77 18 103/60 97 12/16/21 20:00 98.5 F 88 18 121/53 97 12/16/21 14:00 98.5 F 97 H 18 116/58 12/16/21 08:30 98.5 F 74 18 144/61 12/16/21 08:00 97 Pain Assessment - Last Documented Pain Intensity [Anterior] 5 Pain Intensity 2 Pain Scale Used 0-10 Pain Scale Intake and Output: Intake & Output 12/14/21 12/15/21 12/16/21 12/17/21 11:59 11:59 11:59 11:59 Intake Total 7888 465 5231 586 Output Total 1150 Balance 8181 174 5989 586 Weight 113.398 kg Radiology Exams: Radiology Procedures Category Date Time Status KUB Routine Exams 12/15/21 11:19 Completed Assessment/Plan (1) Cholestasis during Current Visit: Yes Status: Acute Code(s): O26.619 - LIVER AND BILIARY TRACT DISORD IN , UNSP TRIMESTER; K83.1 - OBSTRUCTION OF BILE DUCT (2) Non-reassuring electronic monitoring tracing Current Visit: Yes Status: Acute Code(s): O36.8390 - MATERN CARE FOR ABNLT FETL HRT RATE OR RHYM, UNSP TRI, UNSP (3) S/P primary low transverse Current Visit: Yes Status: Acute Code(s): Z98.891 - HISTORY OF UTERINE SCAR FROM PREVIOUS SURGERY
--- NOTE | 2021-12-17 08:04 | PCM.DS ---
Discharge Summary Date of Admission: 12/15/21 08:53 Admitting Physician: NANCY PALACIOS DO Consults: Consults on Case 12/13/21 18:22 Notify Anesthesia Provider PRN 12/13/21 22:19 Notify Physician ROUTINE 12/15/21 12:30 Notify Anesthesia Provider PRN 12/15/21 16:38 Navigation ONCE Primary Care Provider: KENDRA GODINEZ Allergies Allergies No Known Drug Allergies Allergy (Verified 12/13/21 14:11) Hospital Summary - Hospital Course Hospital Course: pt admitted on december 13 for induction secondary to suspected cholestasis of at 38 wks gestation. pt with hx of hepatitis. pt admitted for cytotec induction and on december 15 after epidural placed pt noted having prolonged bradycardia and subsequently underwent primary csection without complicaiton. during postop period did well and had hgb level at 11. at this time doing well and stable for discharge with fu in 2 wks for postop care. all questions answered to her satisfaction. pt given norco for pain management. - Vitals & Intake/Output Vital Signs: Vital Signs Temperature 98.5 F 12/17/21 02:00 Pulse Rate 77 12/17/21 02:00 Respiratory Rate 18 12/17/21 02:00 Blood Pressure 103/60 12/17/21 02:00 O2 Sat by Pulse Oximetry 97 12/17/21 02:00 Intake & Output: Intake & Output 12/14/21 12/15/21 12/16/21 12/17/21 11:59 11:59 11:59 11:59 Intake Total 1101 484 7901 586 Output Total 1150 Balance 6591 795 6435 586 Weight 113.398 kg - Lab Result Diagrams: 12/16/21 04:55 12/13/21 11:24 Micro Results-Entire Visit: Microbiology 12/15/21 10:07 Urine Culture - Final Catherized NO GROWTH - Radiology Exams Ordered Rad Exams-Entire Visit: Radiology Procedures Category Date Time Status KUB Routine Exams 12/15/21 11:19 Completed - Procedures and Test Procedures and Tests throughout Hospitalization: Therapy Orders & Screens 12/15/21 15:57 Standby STAT Comment: Diagnosis: IUP Final Diagnosis/Problem List - Final Discharge Diagnosis/Problem (1) Cholestasis during Current Visit: Yes Status: Acute Code(s): O26.619 - LIVER AND BILIARY TRACT DISORD IN , UNSP TRIMESTER; K83.1 - OBSTRUCTION OF BILE DUCT (2) Non-reassuring electronic monitoring tracing Current Visit: Yes Status: Acute Code(s): O36.8390 - MATERN CARE FOR ABNLT FETL HRT RATE OR RHYM, UNSP TRI, UNSP (3) S/P primary low transverse Current Visit: Yes Status: Acute Code(s): Z98.891 - HISTORY OF UTERINE SCAR FROM PREVIOUS SURGERY - Discharge Disposition: Home, Self-Care Condition: Stable Prescriptions: New Hydrocodone/Acetaminophen [Hydrocodone-Acetamin 5-325 mg] 1 tab PO Q6HPRN PRN #20 tablet MDD 4 PRN Reason: Pain No Action Ropinirole 2Mg [Requip 2Mg Tab] 2 mg PO BID Aspirin EC 81 mg [Ecotrin 81 mg] 81 mg PO DAILY Vit37/Iron/Folic Acid [Prenata Chewable Tablet] 2 each PO DAILY Follow up with: KENDRA GODINEZ [Primary Care Provider] - NANCY PALACIOS DO [ACTIVE STAFF] - 2 weeks (keep incision clean and dry)
[2021-12-17 08:50] VITALS: BP 118/61; PULSE 84
[2021-12-17] MEDS: FERREX 150 PO SCH (09:37)
[2021-12-17] MEDS: Docusate Sodium 100 MG PO SCH (09:38)
[2021-12-17] MEDS ORDERED: Adacel Vial IM ONE (10:00)
[2021-12-17] MEDS: REQUIP 2MG TAB PO SCH (10:20)
== END 2021-12-17 10:15 | disposition home or self-care (01) | DRG 786 ==
LOC: OB 08:53 → OBSVTOIN 12-15 08:53 → INTOOBSV 12-15 09:24 → OBSVTOIN 12-15 09:24
PROVIDERS: ADMIT Obstetrics & Gynecology; ATTEND Obstetrics & Gynecology
PROC: 10D00Z1 Extraction of Products of Conception, Low, Open Approach (ICD-10-PCS; principal; 2021-12-15)
DX: O36.8330 Maternal care for abnormalities of the fetal heart rate or rhythm, third trimester, not applicable or unspecified (principal); K83.1 Obstruction of bile duct; O26.613 Liver and biliary tract disorders in pregnancy, third trimester; Z98.891 History of uterine scar from previous surgery; Z3A.38 38 weeks gestation of pregnancy; Z37.0 Single live birth; B19.20 Unspecified viral hepatitis C without hepatic coma
CPT/HCPCS: 36415; 59514; 64488; 74018; 76937; 76942; 80053; 80307; 81001; 82239; 85025; 85027; 86850; 86900; 86901; 87086; 87340; 90715; 94799; 96372; 99140; G0378; J0595; J0690; J1100; J1200; J1650; J1885; J2274; J2405; J2590; J3010; A9270-GY

== ENCOUNTER 2021-12-27 12:44 | Emergency (ER) | payer OTHER ==
[2021-12-27 13:46] LABS: Absolute Neutrophil Ct (ANC) 6.82 x10^3/uL (1.4-6.9); Basophil (Absolute #) 0.02 x10^3/uL (0-0.4); Eosinophil % 1.1 % (0.00-5.0); Hemoglobin 9.6 g/dL (12.0-16.0); Lymphocyte (Absolute #) 1.74 x10^3/uL (1.0-4.6); Lymphocytes % 18.7 % (24.0-44.0); Mean Cell Volume 96.5 fL (78-100); Mean Corpuscular Hemoglobin 30.9 pg (26-32); Mean Platelet Volume 8.8 fL (7.5-11.0); Monocyte (Absolute #) 0.61 x10^3/uL (0.0-1.3); Monocytes % 6.5 % (0.0-12.0); Neutrophil % 73.2 % (36.0-66.0); Platelet Count 389 x10^3/uL (150-450); Red Blood Count 3.11 x10^6/uL (4.1-5.4); Red Cell Distribution Width 11.8 % (11.5-14.0); White Blood Count 9.3 x10^3/uL (4.0-10.5)
[2021-12-27 13:51] VITALS: O2SAT 98
[2021-12-27 14:00] LABS: ALKALINE PHOSPHATASE 85 U/L (38-126); ANION GAP 9.8 MEQ/L (5-15); BLOOD UREA NITROGEN 22 mg/dL (7-17); CHLORIDE 107 mmol/L (98-107); Calcium 8.5 mg/dL (8.4-10.2); Carbon Dioxide 26 mmol/L (22-30); Creatinine 1 0.75 mg/dL (0.52-1.04); EST GLOMERULAR FILTRATION RATE > 60.0 ML/MIN; Glucose 93 mg/dL (74-106); Potassium 4.4 mmol/L (3.5-5.1); SGOT/AST 19 U/L (14-36); SGPT/ALT 15 U/L (0-35); SODIUM 138 mmol/L (137-145); Total Protein 6.5 g/dL (6.3-8.2)
--- NOTE | 2021-12-27 14:22 | ERPHSYRPT ---
- History of Present Illness Time Seen by Provider: 12/27/21 12:57 Source: patient Exam Limitations: no limitations Patient Subjective Stated Complaint: pt to er with complaints of incision draining more than before. pt states she called Dr. wang and was advised to come in for evaluation. pt had emergent 12 days ago. Triage Nursing Assessment: pt A&Ox4. pt with incision drainage over night. pt states it started yesterday but not alot. denies pain. pt states she has had to change the dressing 3 times since 0600 today. pt states its bloody and yellow in color. Physician History: 41 years old female status post emergent LS CS 12 days ago presented in the ER with increasing redness around incision area and discharge since yesterday. Patient reports yellow-green discharge which is worsened this morning. No fever or chills reported. Complaining of dull aching discomfort in the lower abdomen. Timing/Duration: yesterday, gradual onset, worse Quality: burning, painful Severity: moderate Location: torso Associated Symptoms: change in skin texture, rash, swelling/mass/lumps, No fever Allergies/Adverse Reactions: No Known Drug Allergies Allergy (Verified 12/13/21 14:11) Home Medications: Ropinirole 2Mg [Requip 2Mg Tab] 2 mg PO BID 10/29/14 [History] Hx Tetanus, Diphtheria Vaccination/Date Given: Yes (2009) Hx Influenza Vaccination/Date Given: No Hx Pneumococcal Vaccination/Date Given: No Travel Risk - International Travel Have you traveled outside of the country in past 3 weeks: No - Coronavirus Screening Are you exhibiting any of the following symptoms?: No Close contact with a COVID-19 positive Pt in past 14-21 Days: No - Vaccine Status Have you recieved a Covid-19 vaccination: No - Review of Systems Constitutional: No Symptoms Eyes: No Symptoms Respiratory: No Symptoms Cardiac: No Symptoms Abdominal/Gastrointestinal: Abdominal Pain Genitourinary Symptoms: No Symptoms Musculoskeletal: No Symptoms Skin: Cellulitis, Skin Lesions Neurological: No Symptoms Psychological: No Symptoms Endocrine: No Symptoms Hematologic/Lymphatic: No Symptoms - Past Medical History Pertinent Past Medical History: Yes Neurological History: No Pertinent History ENT History: No Pertinent History Cardiac History: No Pertinent History Respiratory History: No Pertinent History Endocrine Medical History: No Pertinent History Musculoskeletal History: No Pertinent History GI Medical History: No Pertinent History, Hepatitis History: No Pertinent History Psycho-Social History: No Pertinent History Female Reproductive Disorders: No Pertinent History Other Medical History: BACK PAIN - Past Surgical History Past Surgical History: No Neuro Surgical History: No Pertinent History Cardiac: No Pertinent History Respiratory: No Pertinent History Gastrointestinal: No Pertinent History Genitourinary: No Pertinent History Musculoskeletal: No Pertinent History Female Surgical History: Section - Social History Smoking Status: Current every day smoker How long have you smoked: 15-20 Exposure to second hand smoke: Yes Drug Use: none Patient Lives Alone: No - Female History Hx Now: No - Nursing Vital Signs Nursing Vital Signs: Initial Vital Signs Temperature 96.5 F 12/27/21 12:50 Pulse Rate 75 12/27/21 12:50 Respiratory Rate 18 12/27/21 12:50 Blood Pressure 118/81 12/27/21 12:50 O2 Sat by Pulse Oximetry 96 12/27/21 12:50 Pain Scale Pain Intensity 3 - Physical Exam General Appearance: no apparent distress, alert Eye Exam: PERRL/EOMI Ears, Nose, Throat Exam: normal ENT inspection Neck Exam: normal inspection, supple, full range of motion Respiratory Exam: normal breath sounds, lungs clear Cardiovascular Exam: regular rate/rhythm, normal heart sounds Gastrointestinal/Abdomen Exam: soft, tenderness (Lower abdomen L SCS incision with minimal dehiscence with yellow-green discharge soaking all over with erythema and edema around. Minimal tenderness.) Back Exam: normal inspection, normal range of motion Extremity Exam: normal inspection, normal range of motion Neurologic Exam: alert, oriented x 3, cooperative Skin Exam: normal color SpO2 Interpretation: normal SpO2: 98 O2 Delivery: Room Air Ordered Tests: Active Orders 24 hr Category Date Time Status BLOOD CULTURE Stat Lab 12/27/21 13:40 Received CBC W DIFF Stat Lab 12/27/21 13:35 Completed CMP Stat Lab 12/27/21 13:35 Completed Lactic Acid Stat Lab 12/27/21 13:40 Completed PROCALCITONIN Stat Lab 12/27/21 13:35 Received Lab/Rad Data: Laboratory Result Diagrams 12/27/21 13:35 12/27/21 13:35 Laboratory Results 12/27/21 12/27/21 12/27/21 Range/Units 13:40 13:35 13:35 WBC 9.3 (4.0-10.5) x10^3/uL RBC 3.11 L (4.1-5.4) x10^6/uL Hgb 9.6 L (12.0-16.0) g/dL Hct 30.0 L (35-47) % MCV 96.5 (78-100) fL MCH 30.9 (26-32) pg MCHC 32.0 (32-36) g/dL RDW 11.8 (11.5-14.0) % Plt Count 389 (150-450) x10^3/uL MPV 8.8 (7.5-11.0) fL Gran % 73.2 H (36.0-66.0) % Immature Gran % (Auto) 0.3 (0.00-0.4) % Nucleat RBC Rel Count 0.0 (0.00-0.1) % Eos # (Auto) 0.10 (0-0.5) x10^3/uL Immature Gran # (Auto) 0.03 (0.00-0.03) x10^3u/L Absolute Lymphs (auto) 1.74 (1.0-4.6) x10^3/uL Absolute Monos (auto) 0.61 (0.0-1.3) x10^3/uL Absolute Nucleated RBC 0.00 (0.00-0.01) x10^3u/L Lymphocytes % 18.7 L (24.0-44.0) % Monocytes % 6.5 (0.0-12.0) % Eosinophils % 1.1 (0.00-5.0) % Basophils % 0.2 (0.0-0.4) % Absolute Granulocytes 6.82 (1.4-6.9) x10^3/uL Basophils # 0.02 (0-0.4) x10^3/uL Sodium 138 (137-145) mmol/L Potassium 4.4 (3.5-5.1) mmol/L Chloride 107 (98-107) mmol/L Carbon Dioxide 26 (22-30) mmol/L Anion Gap 9.8 (5-15) MEQ/L BUN 22 H (7-17) mg/dL Creatinine 0.75 (0.52-1.04) mg/dL Estimated GFR > 60.0 ML/MIN Glucose 93 (74-106) mg/dL Lactic Acid 0.5 (0.4-2.0) Calcium 8.5 (8.4-10.2) mg/dL Total Bilirubin 0.70 (0.2-1.3) mg/dL AST 19 (14-36) U/L ALT 15 (0-35) U/L Alkaline Phosphatase 85 (38-126) U/L Serum Total Protein 6.5 (6.3-8.2) g/dL Albumin 3.0 L (3.5-5.0) g/dL - Progress Progress: unchanged Progress Note: 12/27/21 15:22 Patient has minimal erythema around wound with some discharge. Has normal white count, lactate. Discussed with Dr. Wang, recommended starting on Keflex and outpatient follow-up. Discussed signs symptoms of worsening needing return to ER which patient seems understanding. Discussed with Dr.: Kerry Counseled pt/family regarding: lab results, diagnosis, need for follow-up - Departure Departure Disposition: Home Clinical Impression: Wound infection Condition: Stable Critical Care Time: No Referrals: KENDRA GODINEZ [Primary Care Provider] - Follow up/PCP as directed NANCY WANG DO [ACTIVE STAFF] - Follow up/PCP as directed (Next week as recommended) Instructions: Surgical Wound (DC), Wound Infection Additional Instructions: Take Tylenol/ibuprofen as needed for pain. Keep it clean and dry. Follow-up with your primary OB for reevaluation next week. Return to ER for increasing pain swelling redness discharge/fever chills etc. Prescriptions: Cephalexin Mh 500 mg [Keflex 500 mg] 500 mg PO TID #28 cap
[2021-12-27 15:00] VITALS: BP 133/73; PULSE 68
== END 2021-12-27 15:52 | disposition home or self-care (01) ==
LOC: ED 12:44
DX: O86.01 Infection of obstetric surgical wound, superficial incisional site (principal); R10.30 Lower abdominal pain, unspecified; Z72.0 Tobacco use; Z28.310 Unvaccinated for COVID-19
CPT/HCPCS: 36415; 80053; 83605; 84145; 85025; 87040; 99283

== ENCOUNTER 2022-07-17 07:13 | Day surgery (SDC) | payer OTHER ==
--- NOTE | 2022-07-16 10:59 | HP ---
DATE OF SURGERY: 07/17/2022 HISTORY OF PRESENT ILLNESS: The patient is a 41-year-old female presents for desired sterility. The patient is a 3, para 3. The patient has three boys. It looks like the patient's children are 21, 13 and 5 months of age. The patient desires tubal ligation at this time. PAST MEDICAL HISTORY: Anxiety. Depression. Reflux. PAST SURGICAL HISTORY: section. ALLERGIES: NKDA. MEDICATIONS: Ropinirole, ibuprofen, omeprazole, Sertraline. FAMILY HISTORY: Kidney disease. SOCIAL HISTORY: Current smoker, occasional alcohol. REVIEW OF SYSTEMS: CONSTITUTIONAL: Denies fever or chills. CHEST: Denies shortness of breath. CVS: Denies chest pain. ABDOMEN: Denies abdominal pain. PHYSICAL EXAMINATION: GENERAL: No acute distress. CHEST: Nonlabored. No shortness of breath. CVS: Regular rate and rhythm. ABDOMEN: Soft. IMPRESSION: Desired sterility. PLAN: Laparoscopic bilateral tubal ligation with Dr. Bill Londono. As dictated by Mirian Noguera NP.
[~2022-07-17 07:13] MED LIST: Sensorcaine 0.25% 10 ML ONE
[2022-07-17] MEDS ORDERED: Lactated Ringers 1,000 ML IV SCH (08:00)
[2022-07-17] MEDS ORDERED: Lactated Ringers 1,000 ML IV ONE (09:28)
[2022-07-17] MEDS: Versed 2 MG/2 ML Injection IV ONE ×2 (09:41→11:14)
[2022-07-17] MEDS ORDERED: Versed 2 MG/2 ML Injection ONE (11:11)
[2022-07-17] MEDS ORDERED: Zemuron 100 MG/10 ML ONE (12:26)
[2022-07-17] MEDS ORDERED: Zofran 4 MG/2 ML VIAL ONE (12:26)
[2022-07-17] MEDS ORDERED: Xylocaine-Mpf 2% 5 Ml Vial ONE (12:26)
[2022-07-17] MEDS ORDERED: BRIDION 200MG/2ML IV ONE (12:26)
[2022-07-17] MEDS ORDERED: Decadron 4 MG INJ ONE (12:26)
[2022-07-17] MEDS ORDERED: TORAdol 30 mg Injection ONE (12:26)
[2022-07-17] MEDS ORDERED: SUBLIMAZE 100 MCG/2 ML ONE ×2 (12:26→13:41)
[2022-07-17] MEDS ORDERED: DIPRIVAN 200 MG/20 ML IV ONE (12:26)
[2022-07-17] MEDS ORDERED: Ketamine HCl 50 MG/ML ONE (12:27)
[2022-07-17] MEDS ORDERED: OFIRMEV 100 ML IV ONE (12:28)
[2022-07-17] MEDS ORDERED: DEXMEDETOMIDINE 80 MCG/20ML-NS IV ONE (12:43)
[2022-07-17] MEDS ORDERED: Hydromorphone 1 mg/ml Injection ONE (13:41)
--- NOTE | 2022-07-17 14:50 | OP ---
SURGERY DATE/TIME: 07/17/2022 1234 PREOPERATIVE DIAGNOSIS: Undesired fertility. POSTOPERATIVE DIAGNOSIS: Undesired fertility. PROCEDURE: Bilateral tubal ligation, tubal fulguration. SURGEON: Bill Londono M.D. ANESTHESIA: General. COMPLICATIONS: None. CONDITION: Stable. INDICATION: The patient is 3, para 3, desires infertility. DESCRIPTION OF PROCEDURE: Taken to surgery. General anesthetic. Routine prep and drape. Veress needle inserted. Opening pressure of 1, insufflating pressure 14. The camera was at the umbilicus. A 5 port was right lateral pelvis. The right tube addressed. Junction of proximal middle third taken out, 2 cm section totally transmurally fulgurated. It extended up to but not into the pelvic peritoneum and the segment was totally transmurally fulgurated. It was traced out to the fimbria. The round ligament was identified and the ovarian pedicle ligament was identified. On the left side similar. The junction of proximal middle third was taken out. It was traced up to the fimbria. It certainly was the tube. Round ligament identified anteriorly and the ovarian pedicle identified posteriorly. The patient tolerated the procedure satisfactorily.
[2022-07-17 14:59] VITALS: BP 113/59; PULSE 55; O2SAT 99
[2022-07-17 15:32] LABS: Appearance Clear (Clear); Bacteria None Seen /HPF (None Seen); Bilirubin Negative (Negative); Blood Negative (Negative); Epithelial Cells None Seen /HPF (None Seen); Glucose Negative (Negative); Hyaline Casts 0-2 /LPF (0-2); Ketones Negative (Negative); Leukocyte Esterase Negative (Negative); Nitrite Negative (Negative); Ph 6.5 (4.6-8.0); Protein,Urine Dip Negative (Negative); RBC 0-2 /HPF (0-5); Urobilinogen 0.2 mg/dL (0.2); WBC 0-2 /HPF (0-5)
== END 2022-07-17 14:50 | disposition home or self-care (01) ==
LOC: SDC 07:13
PROVIDERS: ATTEND Surgery
DX: Z30.2 Encounter for sterilization (principal)
CPT/HCPCS: 81001; 81025; 87086; J1100; J1170; J1885; J2250; J2405; J2704; J3010